=== PATIENT | male | born 2000 | race Caucasian/White ===

== ENCOUNTER 2023-11-11 11:01 | Emergency (ER) | payer OTHER ==
[2023-11-11 11:07] VITALS: BP 135/103; PULSE 63; RESP 16; TEMP 98.4; BMI 22.0
[2023-11-11] MEDS ORDERED: LIDOCAINE HCL 1%, 10 MG/ML (20ML VIAL) ONE (12:14)
[2023-11-11] MEDS ORDERED: IBUPROFEN 600 MG TABLET (FP) PO ONE (12:18)
[2023-11-11] MEDS ORDERED: DIPHTH,PERTUSS(ACELL),TET 0.5 ML DISP.SYRIN IM ONE (12:19)
[2023-11-11] MEDS: LIDOCAINE HCL 1%, 10 MG/ML (50 mL VIAL) SQ ONE (12:25)
[2023-11-11] MEDS: IBUPROFEN 600 MG TABLET (FP) PO ONE (12:26)
[2023-11-11] MEDS: DIPHTH,PERTUSS(ACELL),TET 0.5 ML DISP.SYRIN IM ONE (12:26)
[2023-11-11 12:40] LABS: HEMOGLOBIN 15.6 G/dL (11.7-16.9); MCH 29.8 pg (25.7-33.7); MCHC 32.6 g/dl (32.0-35.9); MEAN CELL VOLUME 91.5 fl (80-96); MEAN PLT VOLUME 9.1 fl (7.5-11.1); PLATELET COUNT 195.6 10^3/uL (134-434); RBC 5.25 10^6/uL (4.00-5.60); WHITE BLOOD COUNT 15.5 10^3/uL (4.0-10.8)
[2023-11-11 12:52] LABS: PLATELET ESTIMATE ADEQUATE
[2023-11-11 12:53] LABS: ALBUMIN 4.8 g/dl (3.4-5.0); BILIRUBIN,TOTAL 0.5 mg/dl (0.2-1); CALCIUM 9.5 mg/dl (8.5-10.1); CREATININE 0.9 mg/dl (0.6-1.3); TOT PROT 7.5 g/dl (6.4-8.2)
[2023-11-11] MEDS ORDERED: CLINDAMYCIN HCL 150 MG CAPSULE (FP) ONE (13:09)
[2023-11-11] MEDS: CLINDAMYCIN HCL 150 MG CAPSULE (FP) PO ONE (13:13)
[2023-11-11] MEDS: ACETAMINOPHEN 500 MG TABLET (FP) PO ONE (13:33)
[2023-11-11] MEDS ORDERED: ACETAMINOPHEN 500 MG TABLET (FP) ONE (13:35)
[2023-11-11 14:17] LABS: HIV INTERPRETATION NEGATIVE (NEGATIVE)
== END 2023-11-11 14:01 | disposition home or self-care (01) ==
LOC: FER 11:01
PROC: 3E0T3BZ Introduction of Anesthetic Agent into Peripheral Nerves and Plexi, Percutaneous Approach (ICD-10-PCS; principal; 2023-11-11)
PROC: 3E0234Z Introduction of Serum, Toxoid and Vaccine into Muscle, Percutaneous Approach (ICD-10-PCS; 2023-11-11)
DX: L03.012 Cellulitis of left finger (principal); M79.645 Pain in left finger(s); Z23 Encounter for immunization
CPT/HCPCS: 36415; 73130-TC-LT-FY; 76882-TC-LT; 80053; 85027; 85651; 86140; 86803; 87070; 87186; 87205; 87389; 90715; 99285-25